=== PATIENT | female | born 1990 ===

== ENCOUNTER 2022-02-11 21:41 | Inpatient (IN) | payer OTHER ==
[2022-02-12] MEDS ORDERED: ACETAMINOPHEN 325 MG TAB PO PRN ×2 (00:50→20:43)
[2022-02-12] MEDS ORDERED: TERBUTALINE 1 MG/1 ML INJ SUB-Q PRN (00:50)
[2022-02-12] MEDS ORDERED: LIDOCAINE (2%) 20 MG/1 ML VIAL 20 ML MDV INFILTRATI ONE (00:50)
[2022-02-12] MEDS ORDERED: OXYTOCIN 10 UNIT/1 ML INJ IM PRN (00:50)
[2022-02-12] MEDS ORDERED: miSOPROStol 200 MCG TAB PR PRN (00:50)
[2022-02-12] MEDS ORDERED: ePHEDrine SULFATE 50 MG/1 ML INJ IV PRN ×2 (00:50→18:36)
[2022-02-12] MEDS ORDERED: CARBOPROST TROMETHAMINE 250 MCG/1 ML INJ IM PRN (00:50)
[2022-02-12] MEDS ORDERED: METHYLERGONOVINE MALEATE 0.2 MG/ML VIAL IM PRN (00:50)
[2022-02-12] MEDS ORDERED: LOPERAMIDE 2 MG CAP PO PRN (00:50)
[2022-02-12] MEDS ORDERED: BUTORPHANOL 2 MG/1 ML INJ IV PRN ×2 (00:50)
[2022-02-12] MEDS ORDERED: MINERAL OIL 30 ML ORAL LIQD PO PRN (00:50)
[2022-02-12] MEDS ORDERED: DINOPROSTONE 10 MG VAG SUPP VG ONE (00:50)
[2022-02-12] MEDS ORDERED: LACTATED RINGERS 1,000 ML IV SCH (01:00)
[2022-02-12] MEDS ORDERED: OXYTOCIN DRIP 30 UNITS/500 ML BAG IV SCH ×2 (01:00)
[2022-02-12 01:14] LABS: Hemoglobin 11.6 gm/dl (10.1-14.3); Mean Corpuscular HGB Conc 32 % (30-34); Mean Corpuscular Volume 88 fl (79-97); Platelet Count 229 K/mm3 (140-440); Red Blood Count 4.08 M/mm3 (3.65-5.03); Red Cell Distribution Width 13.9 % (13.2-15.2)
--- NOTE | 2022-02-12 04:15 | History and Physical Report ---
History of Present Illness Date of examination: 02/12/22 Date of admission: 02/11/22 21:41 Chief complaint: Here for post dates induction History of present illness: 31 y/o G 1 P0 here for post dates induction @ 41.1 weeks. GBS Negative. Past History Past Medical History: no pertinent history Past Surgical History: no surgical history Family/Genetic History: hypertension Social history: no significant social history - Obstetrical History Expected Date of Delivery: 02/04/22 Actual Gestation: 41 Week(s) 1 Day(s) : 1 Number of Living Children: 0 Medications and Allergies Allergies Allergy/AdvReac Type Severity Reaction Status Date / Time No Known Allergies Allergy Verified 02/12/22 00:58 Active Meds: Active Medications Acetaminophen (Acetaminophen 325 Mg Tab) 650 mg PO Q4H PRN PRN Reason: Pain, Mild (1-3) Butorphanol Tartrate (Butorphanol 2 Mg/1 Ml Inj) 1 mg IV Q2H PRN PRN Reason: Pain, Moderate(4-6) LABOR PAIN Butorphanol Tartrate (Butorphanol 2 Mg/1 Ml Inj) 2 mg IV Q2H PRN PRN Reason: Pain , Severe (7-10) Carboprost Tromethamine (Carboprost Tromethamine 250 Mcg/1 Ml Inj) 250 mcg IM ONCE PRN PRN Reason: Uterine Bleeding Ephedrine Sulfate (Ephedrine Sulfate 50 Mg/1 Ml Inj) 10 mg IV Q2M PRN PRN Reason: Hypotension Oxytocin/Sodium Chloride (Pitocin/Ns 30 Unit/500ml) 30 units in 500 mls @ 2 mls/hr IV TITR JESSA; Protocol Lactated Ringer's (Lactated Ringers) 1,000 mls @ 125 mls/hr IV DIRECT JESSA Last Admin: 02/12/22 01:09 Dose: 125 mls/hr Oxytocin/Sodium Chloride (Pitocin/Ns 30 Unit/500ml) 30 units in 500 mls @ 40 mls/hr IV TITR JESSA; Protocol Loperamide HCl (Loperamide 2 Mg Cap) 2 mg PO ONCE PRN PRN Reason: give with Hemabate Methylergonovine Maleate (Methylergonovine Maleate 0.2 Mg/Ml Vial) 0.2 mg IM ONCE PRN PRN Reason: Uterine Bleeding Mineral Oil (Mineral Oil 30 Ml Oral Liqd) 30 ml PO QHS PRN PRN Reason: Constipation Misoprostol (Misoprostol 200 Mcg Tab) 800 mcg GA ONCE PRN PRN Reason: Uterine Bleeding Oxytocin (Oxytocin 10 Unit/1 Ml Inj) 10 unit IM ONCE PRN PRN Reason: Uterine Bleeding Terbutaline Sulfate (Terbutaline 1 Mg/1 Ml Inj) 0.25 mg SUB-Q ONCE PRN PRN Reason: Hyperstimulation/Hypertonicity Review of Systems All systems: negative - Vital Signs Vital signs: Vital Signs Pulse BP 81 108/62 02/11/22 23:14 02/11/22 23:14 Temp Pulse Resp BP Pulse Ox 98.1 F 71 16 99/57 99 02/11/22 23:52 02/12/22 04:12 02/11/22 23:52 02/12/22 03:55 02/12/22 04:12 - Physical Exam Breasts: Positive: deferred, mass Lungs: Positive: Clear to auscultation Abdomen: Positive: soft Genitourinary (Female): Positive: normal external genitalia Vulva: both: normal Vagina: Positive: normal moisture Uterus: Positive: enlarged Adnexa: both: normal Anus/Rectum: Positive: normal perianal skin Extremities: Positive: normal - Obstetrical FHR: category 1 Uterine Contraction Monitor Mode: External Cervical Dilatation: 2 Cervical Effacement Percentage: 50 station: -3 Results Result Diagrams: 02/11/22 23:30 All other labs normal. Assessment and Plan A: 41.1 weeks post dates induction P: Cervadil
[2022-02-12] MEDS ORDERED: fentaNYL 100 MCG/2 ML INJ ONE (15:43)
[2022-02-12] MEDS ORDERED: fentaNYL-BUPIV 2 MCG/ML-0.125% 200 MCG/100 ML BAG EPIDURAL ONE (16:24)
--- NOTE | 2022-02-12 17:51 | Anesthesia Consultation ---
Anesthesia Consult and Med Hx Date of service: 02/12/22 - Airway Anesthetic Teeth Evaluation: Poor ROM Head & Neck: Adequate Mental/Hyoid Distance: Adequate Mallampati Class: Class II Intubation Access Assessment: Probably Good - Pulmonary Exam CTA: Yes - Cardiac Exam Cardiac Exam: RRR - Pre-Operative Health Status ASA Pre-Surgery Classification: ASA2 Proposed Anesthetic Plan: Epidural - Pulmonary Hx Smoking: No Hx Asthma: No COPD: No Hx Pneumonia: No - Cardiovascular System Hx Hypertension: No - Central Nervous System Hx Seizures: No Hx Psychiatric Problems: No - Endocrine Hx Renal Disease: No Hx End Stage Renal Disease: No Hx Hypothyroidism: No Hx Hyperthyroidism: No - Hematic Hx Anemia: Yes Hx Sickle Cell Disease: No - Other Systems Hx Alcohol Use: No Hx Substance Use: No Hx Obesity: No
--- NOTE | 2022-02-12 17:52 | Progress Note ---
Labor Epidural - Labor Epidural Start Time: 16:18 Stop Time: 16:27 Performed by:: MARISSA SEGURA Procedure: Patient is requesting epidural for labor pain. H&P and labs reviewed. Procedure explained, questions answered, consent obtained. Patient placed in sitting position with monitors applied. Timeout performed immediately before start of procedure. Prep/drape in usual sterile fashion. Skin localized 3 mL 1% lidocaine at L[3]-L[4] interspace. 17-gauge Touhy epidural needle advanced to ERASMO with saline at [6] cm. No blood/CSF noted via epidural needle. Epidural catheter advanced to [10] cm. Negative aspiration for blood and CSF via catheter, negative response to test dose 3 ml 1.5% lidocaine w/ Epi. Sterile dressing applied followed by tape reinforcement. Patient tolerated procedure well. No immediate complications noted.
[2022-02-12] MEDS ORDERED: NALOXONE 0.4 MG/1 ML INJ IV PRN (18:36)
[2022-02-12] MEDS ORDERED: fentaNYL-BUPIV 2 MCG/ML-0.125% 200 MCG/100 ML BAG EPIDURAL SCH (19:00)
--- NOTE | 2022-02-12 20:41 | Procedure Note ---
OB Delivery Note - Delivery Date of Delivery: 02/12/22 Surgeon: KINGSLEY KUMAR Estimated blood loss: 500cc - Vaginal Delivery presentation: vertex Delivery position: OA Delivery augmentation: rupture of membranes, pitocin Delivery monitor: external FHT, external uterine, internal FHT Route of delivery: Delivery placenta: spontaneous Episiotomy: none Delivery laceration: other (vaginal floor laceration repaired) Delivery repair: vicryl Anesthesia: epidural Delivery comments: of a viable male 7# 9 oz on 02/12/2022 @ 2010 over intact perineum. 8/9. Vaginal floor laceration repaired with 2-0 vicryl. Placenta delivered 3 VCI. Cytotec 800mcg administered. QBL 500cc. Mother and baby doing well - Infant A at 1 minute: 8 at 5 minutes: 9 (7#9 oz) Gender: Male
[2022-02-12] MEDS ORDERED: PROMETHAZINE 25 MG TAB PO PRN (20:43)
[2022-02-13] MEDS: WITCH HAZEL/ GLYCERIN PAD TP PRN (01:01)
[2022-02-13 08:43] LABS: Hemoglobin 9.5 gm/dl (10.1-14.3)
--- NOTE | 2022-02-13 09:26 | Progress Note ---
Assessment and Plan A: PPD # 1- stable P: Discharge home in am Discharge instructions given Subjective - Subjective Date of service: 02/13/22 Interval history: 31 y/o G 1 P0 here for post dates induction @ 41.1 weeks. GBS Negative. Patient reports: appetite normal [place]: doing well Objective - Vital Signs Latest vital signs: Vital Signs Temp Pulse Resp BP Pulse Ox Pulse Ox 02/12/22 22:20 99 02/12/22 22:05 77 129/72 02/12/22 21:11 91 H 98 02/12/22 21:06 95 H 98 02/12/22 21:04 90 107/59 02/12/22 21:01 89 99 02/12/22 20:56 92 H 98 02/12/22 20:51 90 100 02/12/22 20:46 97 H 100 02/12/22 20:41 93 H 99 02/12/22 20:36 87 93 02/12/22 20:35 98 H 93 02/12/22 20:34 153 H 107/57 02/12/22 20:28 95 H 95 02/12/22 20:23 87 98 02/12/22 20:22 93 02/12/22 20:18 95 H 100 02/12/22 20:17 92 H 85 02/12/22 20:13 77 98 02/12/22 20:08 122 H 99 02/12/22 20:05 80 119/61 02/12/22 20:03 133 H 99 02/12/22 19:58 77 96 02/12/22 19:55 62 85 02/12/22 19:53 68 99 02/12/22 19:48 87 98 02/12/22 19:43 100 H 100 02/12/22 19:38 79 100 02/12/22 19:35 64 114/59 02/12/22 19:33 71 100 02/12/22 19:28 107 H 100 02/12/22 19:23 87 71 L 02/12/22 19:18 67 100 02/12/22 19:13 75 100 02/12/22 19:08 76 100 02/12/22 19:03 70 100 02/12/22 19:02 97.5 F L 16 100 02/12/22 18:59 100 02/12/22 18:58 83 100 02/12/22 18:57 80 92/51 02/12/22 18:53 91 H 100 02/12/22 18:48 77 100 02/12/22 18:43 78 100 02/12/22 18:42 71 80/50 02/12/22 18:38 72 100 02/12/22 18:33 95 H 100 02/12/22 18:28 75 104/58 100 02/12/22 18:23 71 100 02/12/22 18:18 74 100 02/12/22 18:13 68 100 02/12/22 18:12 70 104/57 02/12/22 18:08 66 100 02/12/22 18:03 79 99 02/12/22 17:58 65 99 02/12/22 17:57 65 97/54 02/12/22 17:53 60 99 02/12/22 17:48 54 L 98 02/12/22 17:43 51 L 108/63 02/12/22 17:42 56 L 99 02/12/22 17:38 61 98 02/12/22 17:33 60 99 02/12/22 17:28 64 123/65 100 02/12/22 17:23 54 L 98 02/12/22 17:18 53 L 99 02/12/22 17:13 54 L 110/71 99 02/12/22 17:08 59 L 98 02/12/22 17:03 58 L 97 02/12/22 17:00 18 102/62 02/12/22 16:58 61 96 02/12/22 16:56 57 L 102/62 02/12/22 16:53 64 97 02/12/22 16:48 58 L 97 02/12/22 16:44 55 L 93/52 02/12/22 16:43 58 L 98 02/12/22 16:40 98.4 F 16 02/12/22 16:38 69 100 02/12/22 16:36 59 L 100/58 81 L 02/12/22 16:34 61 109/60 02/12/22 16:32 63 99 02/12/22 16:30 65 87 02/12/22 16:27 72 114/67 94 02/12/22 16:25 61 118/67 94 02/12/22 16:22 68 120/67 98 02/12/22 16:17 69 97 07/02/22 16:14 59 L 92 02/12/22 16:12 71 97 02/12/22 16:07 61 96 02/12/22 16:02 63 96 02/12/22 15:57 63 94 02/12/22 15:56 62 94 02/12/22 15:52 65 94 02/12/22 15:51 64 94 02/12/22 15:47 64 118/63 97 02/12/22 15:46 64 93 02/12/22 15:42 65 99 02/12/22 15:41 63 93 02/12/22 15:37 68 99 02/12/22 15:32 63 97 02/12/22 15:07 62 99 02/12/22 15:02 65 98 02/12/22 14:57 65 98 02/12/22 14:52 62 98 02/12/22 14:46 54 L 97 02/12/22 14:42 56 L 98 02/12/22 14:37 60 97 02/12/22 14:31 56 L 97 02/12/22 14:27 80 98 02/12/22 14:21 59 L 97 02/12/22 14:16 55 L 96 02/12/22 14:11 62 97 02/12/22 14:07 56 L 97 02/12/22 14:01 56 L 97 02/12/22 13:57 56 L 97 02/12/22 13:51 63 97 02/12/22 13:46 60 97 02/12/22 13:41 60 96 02/12/22 13:39 68 94 02/12/22 13:36 60 96 02/12/22 13:32 73 94 02/12/22 13:31 67 95 02/12/22 13:26 66 96 02/12/22 13:21 65 96 02/12/22 13:20 75 93 02/12/22 13:16 72 95 02/12/22 13:12 73 94 02/12/22 13:11 74 95 02/12/22 13:07 72 94 02/12/22 13:06 69 94 02/12/22 13:01 61 95 02/12/22 12:57 77 94 02/12/22 12:56 84 94 02/12/22 12:52 62 95 02/12/22 12:50 67 94 02/12/22 12:46 65 96 02/12/22 12:44 71 94 02/12/22 12:42 97.9 F 69 16 95 02/12/22 12:39 62 94 02/12/22 12:37 67 95 02/12/22 12:32 58 L 96 02/12/22 12:31 61 93 02/12/22 12:13 72 99 02/12/22 12:07 82 99 02/12/22 12:03 25 L 88 02/12/22 12:02 72 99 02/12/22 11:57 66 99 02/12/22 11:51 66 99 02/12/22 11:46 66 99 02/12/22 11:41 71 99 02/12/22 11:36 81 99 02/12/22 11:31 64 98 02/12/22 11:26 60 98 02/12/22 11:21 73 98 02/12/22 11:16 71 98 02/12/22 11:11 77 99 02/12/22 11:06 88 98 02/12/22 11:01 69 100 02/12/22 10:56 63 100 02/12/22 10:51 34 L 88 02/12/22 10:50 87 02/12/22 10:45 69 94 02/12/22 10:44 68 96 02/12/22 10:39 63 98 02/12/22 10:34 70 96 02/12/22 10:29 63 97 02/12/22 10:24 67 96 02/12/22 10:19 66 96 02/12/22 10:14 62 96 02/12/22 10:09 68 96 02/12/22 10:04 67 96 02/12/22 09:59 64 96 02/12/22 09:54 66 99 02/12/22 09:49 65 97 02/12/22 09:44 61 97 02/12/22 09:39 64 95 02/12/22 09:34 61 96 02/12/22 09:29 61 96 Intake and Output 02/12/22 02/13/22 02/13/22 22:59 06:59 14:59 Intake Total 244 Output Total 900 300 Balance -656 -300 Intake: IV 4 PITOCin/NS 30 UNIT/500ML 4 30 units In 500 ml @ 2 mls/hr IV TITR JESSA Rx#: [id number] Oral 240 Output: Urine 900 300 Indwelling Catheter 400 Void 500 300 Other: Total, Intake Amount 240 Total, Output Amount 200 300 # Voids Void 1 1 Estimated Blood Loss 500 - Exam Breasts: Present: deferred Cardiovascular: Present: Regular rate Lungs: Present: Clear to auscultation Abdomen: Present: soft Vulva: both: normal Uterus: Present: fundal height below umbilicus Extremities: Present: normal Deep Tendon Reflex Grade: Normal +2 - Labs Labs: Abnormal lab results 02/13/22 Range/Units 08:18 Hgb 9.5 L (10.1-14.3) gm/dl Hct 29.0 L D (30.3-42.9) %
--- NOTE | 2022-02-13 09:26 | Discharge Summary ---
Providers - Providers Date of Admission: 02/11/22 21:41 Date of discharge: 02/13/22 Attending physician: RICHI TATE Primary care physician: RICHI TATE Hospitalization Reason for admission: induction of labor (post dates) Delivery: Episiotomy: none Laceration: other (vaginal floor repaired) complications: none Discharge diagnosis: IUP at term delivered [place] baby: male Condition at discharge: Good Disposition: 01 HOME / SELF CARE / HOMELESS Plan - Provider Discharge Summary Activity: routine, no sex for 6 weeks, no strenuous exercise Diet: routine Instructions: routine Additional instructions: [] Smoking cessation referral if applicable(refer to patient education folder for contact #) [] Refer to [facility]'s [facility] Booklet Call your doctor immediately for: * Fever > 100.5 * Heavy vaginal bleeding ( >1 pad per hour) * Severe persistent headache * Shortness of breath * Reddened, hot, painful area to leg or breast * Drainage or odor from incision. * Keep incision clean and dry at all times and follow doctor's instructions regarding bathing/showering - Follow up plan Follow up: RICHI TATE MD [Primary Care Provider] - 6 Weeks
[2022-02-13] MEDS: oxyCODONE /ACETAMINOPHEN 5-325MG TAB PO PRN ×2 (09:31→17:48)
[2022-02-13] MEDS: IBUPROFEN 800 MG TAB PO PRN (14:45)
--- NOTE | 2022-02-13 17:11 | Post Anesthesia Evaluation ---
- Post Anesthesia Evaluation Patient Participated: Yes Airway Patent: Yes Stable Respiratory Function: Yes Nausea/Vomiting: No Temp > 96.8F: Yes Pain Manageable: Yes Adequeate Hydration: Yes Anesthesia Complications: No Block Receding Appropriately: Yes Patient on Ventilator: No
[2022-02-13] MEDS: LANOLIN/ZINC/DIMETHICONE (LANSINOH) 7 GM TP PRN (23:10)
[2022-02-14 09:50] VITALS: BP 104/65
[2022-02-14] MEDS: IBUPROFEN 800 MG TAB PO PRN (10:54)
[2022-02-14] MEDS: LANOLIN/ZINC/DIMETHICONE (LANSINOH) 7 GM TP PRN (10:55)
[2022-02-14] MEDS: WITCH HAZEL/ GLYCERIN PAD TP PRN (13:17)
== END 2022-02-14 13:59 | disposition home or self-care (01) | DRG 807 ==
LOC: LD 21:41 → OB 02-12 22:24
PROVIDERS: ADMIT Obstetrics & Gynecology; ATTEND Obstetrics & Gynecology
PROC: 10E0XZZ Delivery of Products of Conception, External Approach (ICD-10-PCS; principal; 2022-02-12)
PROC: 3E0R3BZ Introduction of Anesthetic Agent into Spinal Canal, Percutaneous Approach (ICD-10-PCS; 2022-02-12)
PROC: 00HU33Z Insertion of Infusion Device into Spinal Canal, Percutaneous Approach (ICD-10-PCS; 2022-02-12)
PROC: 0HQ9XZZ Repair Perineum Skin, External Approach (ICD-10-PCS; 2022-02-12)
DX: O48.0 Post-term pregnancy (principal); Z37.0 Single live birth; Z3A.41 41 weeks gestation of pregnancy; Z20.822 Contact with and (suspected) exposure to COVID-19; O70.0 First degree perineal laceration during delivery
CPT/HCPCS: 36415; 59200; 85014; 85018; 85027; 86850; 86900; 86901; G0378; J3490; J0595; J2590; J3010; J3105; J7120; U0003